=== PATIENT | male | born 1990 ===

== ENCOUNTER 2017-10-26 14:39 | Emergency (ER) | payer SELFPAY ==
[2017-10-26] MEDS ORDERED: Clindamycin 600 MG in Sodium Chloride 0.9% 100 ML IV STA (16:54)
[2017-10-26] MEDS ORDERED: Clindamycin 600mg/50ml NS 600 MG/50 ML BAG IVPB ONE (17:15)
[2017-10-26] MEDS ORDERED: Iodixanol 320 MG/ML 200 ML BOTTLE IV ONE (17:32)
--- NOTE | 2017-10-26 18:49 | C.PDOC ---
History Of Present Illness 27 year male presents to the ED for evaluation of left upper toothache and swelling for the past 3 days. Patient states his face became more painful and enlarged. Patient denies trauma, fall, injury, fever, chills, nausea, vomit, diarrhea. Time Seen by Provider: 10/26/17 16:43 Chief Complaint (Nursing): Dental Pain History Per: Patient History/Exam Limitations: no limitations Onset/Duration Of Symptoms: Days Current Symptoms Are (Timing): Still Present Quality: Positive for: "Pain" Recent travel outside of the [place]: No Additional History Per: Patient Past Medical History Reviewed: Historical Data, Nursing Documentation, Vital Signs Vital Signs: Last Vital Signs Temp 98.3 F 10/26/17 15:39 Pulse 86 10/26/17 15:39 Resp 18 10/26/17 15:39 BP 159/100 H 10/26/17 15:39 Pulse Ox 99 10/26/17 18:49 - Medical History PMH: No Chronic Diseases Surgical History: No Surg Hx Family History: States: Unknown Family Hx - Social History Hx Alcohol Use: No Hx Substance Use: Yes (Marijuana) Review Of Systems Constitutional: Negative for: Fever, Chills ENT: Positive for: Mouth Swelling, Other (toothache). Negative for: Nose Discharge, Nose Congestion Respiratory: Negative for: Cough, Shortness of Breath Gastrointestinal: Negative for: Nausea, Vomiting, Abdominal Pain Musculoskeletal: Negative for: Neck Pain Skin: Negative for: Rash Physical Exam - Physical Exam Appears: Non-toxic, No Acute Distress Skin: Normal Color, Warm, Dry Head: Atraumatic, Normacephalic, Swelling (left midface) Eye(s): bilateral: Normal Inspection, PERRL, EOMI Ear(s): Bilateral: Normal Nose: No Discharge, No Deformity Oral Mucosa: Moist Tongue: No Swelling Lips: No Swelling Teeth: Caries (teeth 11 and 12) Gingiva: Swelling Neurological/Psych: Oriented x3, Normal Speech, Normal Cognition Gait: Steady ED Course And Treatment O2 Sat by Pulse Oximetry: 99 (On RA) Pulse Ox Interpretation: Normal - CT Scan/US CT facial/orbits Other Rad Studies (CT/US): Read By Radiologist, Radiology Report Reviewed CT/US Interpretation: Addendum created by Emmy Howe MD on 10/26/2017 6:19 PM Eastern Time ([place] & [place]). There are no critical findings, the airway is patent and there are no large drainable abscess these. Followup is indicated. Initial Report created on 10/26/2017 6:16 PM Eastern Time ([place] & [place]). EXAM: CT Orbits With Intravenous Contrast. CLINICAL HISTORY: 27 years old, male; Signs and symptoms; Mass, lump, or swelling; Maxilla; Additional info: Left side. facial swelling and pain since 3 days. TECHNIQUE: Axial computed tomography images of the orbits with intravenous contrast. All CT scans at this. facility use one or more dose reduction techniques, viz.: automated exposure control; ma/kV. adjustment per patient size (including targeted exams where dose is matched to indication; i.e. head);. or iterative reconstruction technique. Coronal and sagittal reformatted images were created and reviewed. CONTRAST: 100 mL of visipaque 320 administered intravenously. COMPARISON: No relevant prior studies available. FINDINGS: Artifacts: Some limitations do to beam hardening artifact from a dental nodules. Orbits: Unremarkable. Sinuses: Mucosal thickening of the left maxillary sinus. No air-fluid levels. Bones/ joints: No acute fracture. Soft tissues: There is left pre-mandibular and premaxillary, malar and preseptal soft tissue swelling. Dental: There is multifocal dental disease. Recommend complete dental evaluation. IMPRESSION: Diffuse subcutaneous induration from the left pre-mandibular region extending to the left preseptal. region with soft tissue thickening of the left maxillary gingival region. No discrete drainable abscess. but some limitations because of beam hardening artifact. Cellulitis is likely. Dental infection is. possible due to diffuse periodontal disease. Thank you for allowing us to participate in the care of your patient Medical Decision Making Medical Decision Making: Impression : toothache Plan: Clindamycin Toradol 30 mg IVP Patient will be d/c home with clindamycin and pain medication, patient was advised to follow up with dentist in 2 days or to return to the Ed if symptoms worsen Disposition Counseled Patient/Family Regarding: Studies Performed, Diagnosis, Need For Followup, Rx Given - Disposition Disposition: HOME/ ROUTINE Disposition Time: 18:47 Condition: GOOD Additional Instructions: follow up with doctor in 2 days call to make an appointment take medication as needed for pain return to ER if symptoms worsens or progress Prescriptions: Acetaminophen/Codeine [Tylenol/Codeine 300 MG/30 MG] 1 tab PO Q6H PRN #12 tab PRN Reason: Pain, Severe (8-10) Clindamycin [Cleocin] 300 mg PO QID #40 cap Naproxen [Naprosyn] 500 mg PO BID PRN #16 tab PRN Reason: Pain, Moderate (4-7) Instructions: Dental Caries (ED), Cellulitis (ED) Forms: General Discharge Instructions, [facility] ([place]), Work Excuse - Clinical Impression Clinical Impression: Dental caries, Cellulitis - Scribe Statement The provider has reviewed the documentation as recorded by the Scribperez Figueroa All medical record entries made by the Maddieibperez were at my direction and personally dictated by me. I have reviewed the chart and agree that the record accurately reflects my personal performance of the history, physical exam, medical decision making, and the department course for this patient. I have also personally directed, reviewed, and agree with the discharge instructions and disposition.
--- NOTE | 2017-10-26 18:50 | C.PDOC ---
History Of Present Illness 27 year male presents to the ED for evaluation of left upper toothache and swelling for the past 3 days. Patient states his face became more painful and enlarged. Patient denies trauma, fall, injury, fever, chills, nausea, vomit, diarrhea. Time Seen by Provider: 10/26/17 16:43 Chief Complaint (Nursing): Dental Pain History Per: Patient History/Exam Limitations: no limitations Onset/Duration Of Symptoms: Days Current Symptoms Are (Timing): Still Present Quality: Positive for: "Pain" Additional History Per: Patient Past Medical History Reviewed: Historical Data, Nursing Documentation, Vital Signs Vital Signs: Last Vital Signs Temp 98.3 F 10/26/17 15:39 Pulse 86 10/26/17 15:39 Resp 18 10/26/17 15:39 BP 159/100 H 10/26/17 15:39 Pulse Ox 99 10/26/17 15:39 - Medical History PMH: No Chronic Diseases Surgical History: No Surg Hx Family History: States: Unknown Family Hx - Social History Hx Alcohol Use: No Hx Substance Use: Yes (Marijuana) Review Of Systems Constitutional: Negative for: Fever, Chills ENT: Positive for: Mouth Swelling, Other (Toothache) Cardiovascular: Negative for: Chest Pain, Palpitations Respiratory: Negative for: Cough, Shortness of Breath Gastrointestinal: Negative for: Nausea, Vomiting, Abdominal Pain Skin: Negative for: Rash Neurological: Negative for: Weakness, Numbness, Headache Physical Exam - Physical Exam Appears: Non-toxic, No Acute Distress Skin: Normal Color, Warm, Dry Head: Atraumatic, Normacephalic, Swelling (left midface ) Eye(s): bilateral: Normal Inspection, PERRL, EOMI Ear(s): Bilateral: Normal Nose: No Discharge, No Deformity Oral Mucosa: Moist Tongue: No Swelling Lips: No Swelling Teeth: Caries (teeth 11 and 12) Gingiva: Swelling Throat: Normal, No Erythema, No Exudate Neurological/Psych: Oriented x3, Normal Speech, Normal Cognition Gait: Steady ED Course And Treatment O2 Sat by Pulse Oximetry: 99 (On RA) Pulse Ox Interpretation: Normal Medical Decision Making Medical Decision Making: Impression : toothache Plan: * Clindamycin * Toradol 30 mg IVP Patient will be d/c home with clindamycin and pain medication, patient was advised to follow up with dentist in 2 days or to return to the Ed if symptoms worsen. Disposition - Disposition - Scribe Statement The provider has reviewed the documentation as recorded by the Scribe Blayne Figueroa All medical record entries made by the Scribe were at my direction and personally dictated by me. I have reviewed the chart and agree that the record accurately reflects my personal performance of the history, physical exam, medical decision making, and the department course for this patient. I have also personally directed, reviewed, and agree with the discharge instructions and disposition.
[2017-10-26 19:15] VITALS: BP 149/90; PULSE 95; RESP 16; TEMP 98.6; O2SAT 100
--- NOTE | 2017-10-27 08:40 | CT ---
PROCEDURE: CT MAXILLOFACIAL BONES WITHOUT CONTRAST HISTORY: left side facial swellin g COMPARISON: None TECHNIQUE: Contiguous axial CT images of the maxillofacial bones were obtained. Coronal and sagittal reformats were generated. Radiation dose: Total exam DLP = 803.34 mGy-cm. This CT exam was performed using one or more of the following dose reduction techniques: Automated exposure control, adjustment of the mA and/or kV according to patient size, and/or use of iterative reconstruction technique. FINDINGS: NASAL BONES: Unremarkable. ORBITS: Unremarkable. PARANASAL SINUSES/ MASTOIDS: Chronic left maxillary sinusitis. MAXILLA: Pre maxillary soft tissue induration extending to the left inferior palpebrum and also involving the left maxillary gingiva. There is also soft tissue induration in the subcutaneous soft tissues over the left mandible. No evidence of abscess. Immediately subjacent to the gingival soft tissue thickening is focal periodontal disease involving a left mandibular premolar with apical lucency and surrounding mandibular sclerosis. There is also periodontal disease involving both the right and left incisors with yesica cortical breakthrough of both. No osseous abnormality of the maxilla otherwise. MANDIBLE/ TEMPOROMANDIBULAR JOINTS: As above. No bony abnormality. SKULL BASE: Unremarkable. TEMPORAL BONES: Middle ears and mastoid grossly unremarkable. OTHER FINDINGS: None. IMPRESSION: Multifocal left mandibular periodontal disease with cortical breakthrough and gingival swelling, as well as induration of subcutaneous soft tissues over the left maxilla and mandible. No evidence of abscess. There is some sclerosis of the left maxilla common nonspecific, likely due to long-standing periodontal disease. Rule out osteomyelitis. Chronic left maxillary sinusitis. Preliminary interpretation of this examination was reported by [facility] at 6:16 p.m. on 10/26/2017. There is concurrence of this report with the preliminary interpretation.
== END 2017-10-26 19:15 | disposition home or self-care (01) ==
LOC: C.ER 14:39
DX: K02.9 Dental caries, unspecified (principal); L03.818 Cellulitis of other sites
CPT/HCPCS: 70481; 96374; 99284; J1885; J7050; Q9966